=== PATIENT | female | born 2000 | race Two or more races ===

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

== ENCOUNTER → 2025-01-19 | Outpatient (CLI) | payer BC | END | disposition home or self-care (01) | LOC: LAB 16:18 → LAB SHORT 16:18 | DX: N39.0 Urinary tract infection, site not specified (principal) | CPT/HCPCS: 87086 ==